=== PATIENT | female | born 1950 | race Caucasian/White ===

== ENCOUNTER 2023-06-01 12:26 | Inpatient (IN) | payer MEDICARE, OTHER ==
[~2023-06-01] VITALS: Ht 163.8 cm; Wt 76.8 kg
[2023-06-01] MEDS ORDERED: ONDANSETRON ODT 4 MG TAB PO ONE (13:15)
[2023-06-01 13:31] LABS: Basophils # (auto) 0.1 10 ^3/uL (0-0.2); Basophils % (auto) 0.8 % (0.0-2.0); Eosinophils # (auto) 0 10 ^3/uL (0-0.8); Eosinophils % (auto) 0.4 % (0.0-7.0); Hematocrit 42.7 % (36.0-46.0); Hemoglobin 14.5 g/dL (12.2-16.2); Lymphocytes # (auto) 1.2 10 ^3/uL (0.4-5.4); Lymphocytes % (auto) 12.1 % (10.0-50.0); Mean Corpuscular Hemoglobin 28.2 pg (28.0-32.0); Mean Corpuscular Hgb Conc. 34.1 g/dL (32.0-36.0); Mean Corpuscular Volume 82.9 fL (80.0-100.0); Monocytes # (auto) 0.4 10 ^3/uL (0-1.3); Monocytes % (auto) 4.3 % (0.0-12.0); Neutrophils # (auto) 8.1 10 ^3/uL (1.6-8.6); Neutrophils % (auto) 82.4 % (37.0-80.0); Nucleated Red Blood Cells % 0.1 %; Red Blood Cells 5.15 10^6/uL (4.0-5.20); Red Cell Distribution Width 13.4 % (11.8-14.3); White Blood Cell 9.9 10^3/uL (4.4-10.8)
[2023-06-01 13:47] LABS: Partial Thromboplastin Time 22.8 SEC (24.5-34.5); Prothrombin Time 10.5 sec (9.3-11.8)
[2023-06-01 14:02] LABS: Alanine Aminotransferase 46 U/L (7-40); Albumin 4.9 g/dL (3.2-4.8); Alkaline Phosphatase 86 U/L (46-116); Anion Gap 8.5 (5-15); Aspartate Aminotransferase 26 U/L (13-40); BUN/Creatinine Ratio 27.8 (10.0-20.0); Bilirubin, Total 0.7 mg/dL (0.2-1.0); Blood Urea Nitrogen 22 mg/dL (9-23); Calcium 10.4 mg/dL (8.5-10.1); Carbon Dioxide 24.5 mmol/L (20-30); Chloride 106 mmol/L (98-107); Glucose 141 mg/dL (74-106); Potassium 4.2 mmol/L (3.5-5.1); Sodium 139 mmol/L (136-145); Total Protein 7.4 g/dL (5.7-8.2)
[2023-06-01] MEDS ORDERED: MECLIZINE HCL 25 MG TAB PO PRN (17:00)
[2023-06-01] MEDS ORDERED: NITROGLYCERIN 0.4 MG SL TAB SL PRN (17:00)
[2023-06-01] MEDS ORDERED: ACETAMINOPHEN 325 MG TAB PO PRN (17:00)
[2023-06-01] MEDS ORDERED: SODIUM CHLORIDE 0.9% 1,000 ML IV SCH (17:00)
[2023-06-01] MEDS ORDERED: PANTOPRAZOLE 40 MG/10 ML VIAL INJ IV ONE (17:00)
[2023-06-01] MEDS ORDERED: MORPHINE SULFATE INJ 2 MG/ml SYRG IV PRN (17:00)
[2023-06-01] MEDS ORDERED: ONDANSETRON HCL 4 MG/2 ML VIAL IV PRN (17:00)
[2023-06-01] MEDS ORDERED: ATOR10TA52 PO (17:08)
[2023-06-01] MEDS ORDERED: LEVO100T8 PO (17:08)
[2023-06-01] MEDS ORDERED: BUPR300T28 PO (17:08)
[2023-06-01] MEDS ORDERED: PRED20TA2 PO (17:08)
[2023-06-01] MEDS ORDERED: CITA-73 PO (17:08)
[2023-06-01] MEDS ORDERED: buPROPion HCL 75 MG TAB PO SCH (17:30)
[2023-06-02] VITALS (7 sets, daily range): BP systolic 95–121; BP diastolic 41–77; PULSE 60–78; RESP 17–20; TEMP 97.5–98.5; O2SAT 94–100
[2023-06-02 09:01] LABS: Urine Bacteria FEW /hpf (None Seen); Urine Blood Negative /uL (Negative); Urine Clarity HAZY (Clear); Urine Color Yellow (Yellow); Urine Mucus FEW (None Seen); Urine Protein, UAD TRACE (Negative); Urine Specific Gravity 1.032 (1.001-1.035); Urine Urobilinogen Normal (Negative); Urine WBC 12 /hpf (0 - 5); Urine pH 5.5 (5.0-8.0)
[2023-06-02] MEDS ORDERED: CITALOPRAM HYDROBR 20 MG TAB PO SCH (10:00)
[2023-06-02] MEDS ORDERED: PANTOPRAZOLE 40 MG/10 ML VIAL INJ IV SCH (10:00)
[2023-06-02] MEDS ORDERED: LEVOTHYROXINE SODIUM 100 MCG TAB PO SCH (10:00)
[2023-06-02] MEDS ORDERED: cefTRIAXone 1GM/50ML D5W 50 ML IV ONE (11:30)
[2023-06-02 11:52] LABS: Amphetamine Screen, Urine Neg (NEGATIVE)
[2023-06-02 11:54] LABS: Barbiturate Scree,Urine Neg (NEGATIVE); Benzodiazephine Screen, Urine Neg (NEGATIVE); Cocaine Screen, Urine Neg (NEGATIVE); Opiate Scree,Urine Neg (NEGATIVE); Phencyclidine Screen, Urine Neg (NEGATIVE)
[2023-06-02 11:55] LABS: Cannabinoid Screen, Urine Neg (NEGATIVE)
[2023-06-02] MEDS: ONDANSETRON ODT 4 MG TAB PO PRN ×2 (13:38→22:10)
[2023-06-02] MEDS ORDERED: CALC500C3 PO (22:11)
[2023-06-02] MEDS ORDERED: CALC-245 OR (22:11)
[2023-06-02] MEDS ORDERED: OMEG-20 PO (22:11)
[2023-06-02] MEDS ORDERED: THIA100T10 GT (22:11)
[2023-06-02] MEDS ORDERED: OMEG100062 PO (22:11)
[2023-06-02] MEDS ORDERED: ASPI1TAB20 PO (22:11)
[2023-06-02] MEDS ORDERED: REDPOW XX (22:11)
[2023-06-02] MEDS ORDERED: OME20T PO (22:11)
[2023-06-02] MEDS ORDERED: REDPOW2 XX (22:11)
[2023-06-02] MEDS ORDERED: CHOL500046 PO (22:11)
[2023-06-02] MEDS ORDERED: VITA400T4 PO (22:11)
[2023-06-03] VITALS (7 sets, daily range): BP systolic 97–104; BP diastolic 48–65; PULSE 55–68; RESP 17–18; TEMP 97.6–98.2; O2SAT 92–100
[2023-06-03] MEDS: PANTOPRAZOLE 40 MG/10 ML VIAL INJ IV SCH (08:47)
[2023-06-03] MEDS: cefTRIAXone 1GM/50ML D5W 50 ML IV SCH (08:47)
[2023-06-03] MEDS: CITALOPRAM HYDROBR 20 MG TAB PO ONE ×2 (10:45→12:04)
[2023-06-03] MEDS ORDERED: LEVOTHYROXINE SODIUM 100 MCG TAB PO ONE (10:45)
[2023-06-03 11:14] LABS: Alanine Aminotransferase 29 U/L (7-40); Albumin 4.1 g/dL (3.2-4.8); Alkaline Phosphatase 68 U/L (46-116); Anion Gap 5.4 (5-15); Aspartate Aminotransferase 14 U/L (13-40); BUN/Creatinine Ratio 23.3 (10.0-20.0); Blood Urea Nitrogen 17 mg/dL (9-23); Calcium 9.5 mg/dL (8.5-10.1); Carbon Dioxide 29.6 mmol/L (20-30); Chloride 106 mmol/L (98-107); Glucose 88 mg/dL (74-106); Potassium 4.5 mmol/L (3.5-5.1); Sodium 141 mmol/L (136-145)
[2023-06-03 11:15] LABS: Bilirubin, Total 0.4 mg/dL (0.2-1.0); Total Protein 6.2 g/dL (5.7-8.2)
[2023-06-03] MEDS: buPROPion HCL 75 MG TAB PO SCH (18:07)
[2023-06-03] MEDS ORDERED: CITALOPRAM HYDROBR 20 MG TAB PO SCH (22:00)
[2023-06-04 05:00] VITALS: BP 96/49; PULSE 61; RESP 17; TEMP 97.5; O2SAT 95
[2023-06-04] MEDS: buPROPion HCL 75 MG TAB PO SCH ×2 (06:05→18:04)
[2023-06-04] MEDS ORDERED: LEVOTHYROXINE SODIUM 100 MCG TAB PO SCH (07:00)
[2023-06-04 08:00] VITALS: PULSE 61
[2023-06-04] MEDS: PANTOPRAZOLE 40 MG/10 ML VIAL INJ IV SCH (08:37)
[2023-06-04] MEDS: cefTRIAXone 1GM/50ML D5W 50 ML IV SCH (08:37)
[2023-06-04 09:00] VITALS: BP 114/74; PULSE 80; RESP 18; TEMP 97.7; O2SAT 98
[2023-06-04] MEDS ORDERED: CIPR-173 PO (09:46)
[2023-06-04] MEDS ORDERED: ZOFR4T PO (09:46)
[2023-06-04] MEDS ORDERED: CITALOPRAM HYDROBR 20 MG TAB PO SCH (10:00)
[2023-06-04 13:00] VITALS: BP 116/66; PULSE 67; RESP 18; TEMP 98.3; O2SAT 100
[2023-06-04 13:11] VITALS: BP 114/74; PULSE 80; RESP 18; TEMP 97.7; O2SAT 98
[2023-06-04 17:00] VITALS: BP 90/53; PULSE 77; RESP 18; TEMP 98.2; O2SAT 98
[2023-06-05 14:06] LABS: AFP Serum Tumor Marker 7.1 ng/mL (0.0-9.2); Cancer Antigen (CA) 125 6.4 U/mL (0.0-38.1)
== END 2023-06-04 20:22 | disposition home or self-care (01) | DRG 760 ==
LOC: ER 12:26 → TELE 17:07 → UNDODISIN 23:22 → TELE-CENTR 06-02 11:12
PROVIDERS: ADMIT Nurse Practitioner Family; ATTEND Family Medicine
DX: N83.202 Unspecified ovarian cyst, left side (principal); N39.0 Urinary tract infection, site not specified; K21.9 Gastro-esophageal reflux disease without esophagitis; E78.00 Pure hypercholesterolemia, unspecified; F32.A Depression, unspecified; E83.52 Hypercalcemia; Z79.82 Long term (current) use of aspirin; Z80.0 Family history of malignant neoplasm of digestive organs; Z80.6 Family history of leukemia; Z82.3 Family history of stroke; Z82.49 Family history of ischemic heart disease and other diseases of the circulatory system; Z82.5 Family history of asthma and other chronic lower respiratory diseases; Z85.828 Personal history of other malignant neoplasm of skin; Z90.49 Acquired absence of other specified parts of digestive tract; R42 Dizziness and giddiness
CPT/HCPCS: 36415; 70450; 71045; 74176; 76856; 80053; 80307; 81001; 82105; 82378; 83036; 84484; 85025; 85610; 85730; 86304; 87086; 93005; C9113; G0378; J0696; Q0162